=== PATIENT | female | born 1955 | race Caucasian/White ===

== ENCOUNTER 2016-11-23 05:43 | Day surgery (SDC) | payer BC ==
[~2016-11-23] VITALS: Ht 154.9 cm; Wt 55.0 kg
[2016-11-23 06:45] VITALS: Ht 154.9 cm; Wt 55.0 kg
[2016-11-23] MEDS ORDERED: omeprazole PO (06:54)
[2016-11-23] MEDS ORDERED: symbicort INH (06:54)
[2016-11-23] MEDS ORDERED: zantac PO (06:54)
[2016-11-23] MEDS ORDERED: lorazepam PO (06:54)
[2016-11-23 07:00] VITALS: BP 112/71; PULSE 90; RESP 24
[2016-11-23] MEDS ORDERED: FENTAnyl 50 MCG/ML VIAL ONE (07:50)
[2016-11-23] MEDS ORDERED: MIDAZOLAM 1 MG/ML 2 ML INJ ONE (07:50)
[2016-11-23 08:05] VITALS: BP 110/70; PULSE 82; RESP 24
--- NOTE | 2016-11-23 16:40 | GILP ---
DATE OF PROCEDURE: NAME OF PROCEDURE: Esophagogastroduodenoscopy and biopsy. SURGEON: Poly Cheema MD PREOPERATIVE DIAGNOSES: 1. Abdominal pain. 2. Chronic heartburn. POSTOPERATIVE DIAGNOSES: 1. Hiatal hernia. 2. Gastroesophageal reflux disease. 3. Gastritis. 4. Gastric mucosal biopsies were taken for Helicobacter pylori test. INDICATION FOR THE PROCEDURE: Ms. Brisa Bravo is a 61-year-old female patient who had upper abdo ron pain and chronic heartburn not responding to therapy. The patient was scheduled for endoscopi c examination for further evaluation. The procedure and possible complications are well explained to the patient. The patient understood and consented to the procedure. DESCRIPTION OF PROCEDURE: Under the influence of fentanyl and Versed, the gastroscope was carefully introduced into the esophagus, and under direct vision, it was advanced to the stomach and through the pylorus to the duodenal bulb and descending duodenum. FINDINGS: ESOPHAGUS: The patient had hiatal hernia and gastroesophageal reflux disease. STOMACH: She had gastritis with erosions. Gastric mucosal biopsies were taken for H pylori test. DUODENUM: Normal. The patient tolerated the procedure very well. There was no complication from the procedure. At th e end of the procedure, she was awake with stable vital signs, and she was discharged home to care o f her family. IMPRESSION: 1. Hiatal hernia. 2. Gastroesophageal reflux disease. 3. Gastritis. 4. Gastric mucosal biopsies were taken for Helicobacter pylori test. PLAN: 1. Omeprazole 40 mg p.o. b.i.d. 2. Await H pylori test report. Dictated By: POLY TONG/DAVID Conf#: [id number] DID#: [id number]
== END 2016-11-23 09:38 | disposition home or self-care (01) ==
LOC: GIL 05:43
PROVIDERS: ATTEND Internal Medicine Gastroenterology
DX: K44.9 Diaphragmatic hernia without obstruction or gangrene (principal); K21.9 Gastro-esophageal reflux disease without esophagitis; K29.70 Gastritis, unspecified, without bleeding
CPT/HCPCS: 43239; J2250; J3010; 87081

== ENCOUNTER 2017-09-27 11:30 | Day surgery (SDC) | payer BC ==
[2017-09-27] VITALS (19 sets, daily range): BP systolic 83–112; BP diastolic 46–60; PULSE 80–90; RESP 13–26; Ht 157.5 cm; Wt 55.2 kg
[~2017-09-27] VITALS: Ht 157.5 cm; Wt 55.2 kg
--- NOTE | 2017-09-27 07:54 | HPN ---
Date/Time of Note Date/Time of Note DATE: 09/27/17 TIME: 07:54 Interval H&P Admission Note Pt. seen H&P reviewed: No system changes ELIO FENG MD Sep 27, 2017 07:54
[~2017-09-27 11:30] MED LIST: lorazepam PO; omeprazole PO; symbicort INH; zantac PO
[2017-09-27] MEDS ORDERED: ADV25050 INHALATION (13:49)
[2017-09-27] MEDS ORDERED: DULO30CA47 PO (13:49)
[2017-09-27] MEDS ORDERED: FENTAnyl 50 MCG/ML VIAL ONE (13:51)
[2017-09-27] MEDS ORDERED: METOCLOPRAMIDE 10 MG INJ ONE (13:51)
[2017-09-27] MEDS ORDERED: ROPIVACAINE 0.2% 20 ML VIAL ONE (13:51)
[2017-09-27] MEDS ORDERED: MIDAZOLAM 1 MG/ML 2 ML INJ ONE (13:51)
[2017-09-27] MEDS ORDERED: POLYMYXIN/BACITRACIN 1L IRRIG ONE (15:55)
--- NOTE | 2017-09-27 15:56 | HPN ---
Date/Time of Note Date/Time of Note DATE: 09/27/17 TIME: 15:54 Interval H&P Admission Note the correct operative side is left side. Left shoulder scope, rotator cuff repair, biceps tenodesis, subacromial decompression ELIO FENG MD Sep 27, 2017 15:56
[2017-09-27] MEDS ORDERED: ROCURONIUM 50 MG INJ ONE (16:05)
[2017-09-27] MEDS ORDERED: DEXAMETHASONE 4 MG/ML 1 ML INJ ONE (16:05)
[2017-09-27] MEDS ORDERED: PROPOFOL 20 ML ONE (16:05)
[2017-09-27] MEDS ORDERED: CEFAZOLIN 1 GM INJ ONE (16:08)
[2017-09-27] MEDS ORDERED: PHENYLephrine (100 MCG/ML) 5ML SYG ONE (16:25)
[2017-09-27] MEDS ORDERED: EPHEDrine SULFATE 50 MG/5 ML SYG ONE (16:47)
[2017-09-27] MEDS ORDERED: EPINEPHrine 100 MCG/10 ML SYG IV ONE (16:53)
[2017-09-27] MEDS ORDERED: EPINEPHrine 1 MG INJ ONE ×2 (16:55→17:53)
[2017-09-27] MEDS ORDERED: EPHEDrine SULFATE 50 MG/5 ML SYG IV PRN ×2 (17:30→20:00)
[2017-09-27] MEDS ORDERED: ALBUTEROL 0.083% (NEB) 2.5 MG/3 ML AMP HHN PRN (17:30)
[2017-09-27] MEDS ORDERED: HYDROmorphONE (0.2 MG/ML) 10ML SYG IV PRN ×3 (17:30)
[2017-09-27] MEDS ORDERED: METOCLOPRAMIDE 10 MG INJ IV PRN (17:30)
[2017-09-27] MEDS ORDERED: DIPHENHYDRAMINE 50 MG INJ IV PRN (17:30)
[2017-09-27] MEDS ORDERED: ONDANSETRON 4 MG INJ IV PRN ×2 (17:30→19:30)
[2017-09-27] MEDS ORDERED: MEPERIDINE 25 MG INJ IV PRN (17:30)
[2017-09-27] MEDS ORDERED: KETOROLAC 30 MG INJ ONE (18:49)
--- NOTE | 2017-09-27 19:08 | OPR ---
Date/Time of Note Date/Time of Note DATE: 09/27/17 TIME: 18:59 Operative Report Preoperative Diagnosis 1. Left shoulder rotator cuff tear 2. Impingement syndrome 3. High-grade SLAP tear Postoperative Diagnosis Same Operation/Procedure Performed 1 left shoulder arthroscopy rotator cuff repair 2. Arthroscopic biceps tenodesis 3. 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 She has failed nonoperative treatment now presents for the above listed procedure. Risks and benefits were discussed with the patient risks including but not limited to infection, bleeding, shoulder stiffness, hardware failure with loosening of the anchors, re-tear of the tendon and other risks and potential complications were discussed informed consent was obtained Procedure Description Patient's correct shoulder was identified in the preoperative area she is brought back to the operating room. She had an interscalene block then she had general endotracheal anesthesia. She was then positioned on the shoulder table all bony prominences were adequately padded left shoulder and upper extremity were prepped and draped in the central manner. A timeout was performed. The standard posterior portal incision was made. Arthroscope was introduced in the glenohumeral joint. Articular surfaces were intact. There is a full-thickness tear of the supraspinatus extending in the infraspinatus. This is significant superior labral tear. The biceps tendon was intact. Subscap tendon was intact. At this point I established anterolateral cannula through a portal incision. I then tenodesed the biceps tendon into the bicipital groove using a 4.75 swivel lock anchor. At this point I turned my attention to the footprint I thoroughly debrided the footprint using a shaver cleaning up loose tissue. I then used Arthrex anchors and decided to use the speed bridge technique. This point one anchor was placed anteriorly. Another one was was placed posteriorly along the footprint and the articular margin. At this point I went in subacromial space. I did a thorough bursectomy found a moderate spur which was removed with a lateral incision using an oblong starr. At this point I looked at my cuff from the lateral portal and crosses and then used a scorpion device to penetrate the cuff anterior anchor was utilized and sutures were penetrated anteriorly the posterior anchor sutures were penetrated posteriorly I then crisscrossed the sutures abducting the arm but the double row 4.75 swivel lock bone laterally was very soft and I did not get good purchase on the anchor especially the posterior anchor. I pulled on the stitch which was attached to the eyelid at the tip of the anchor with the anchors were well seated and did not pull back when tension was applied on the sutures. Upon examination of the sutures, the suture were found to be compressing the cuff. I also went on the articular side and the footprint was fully covered and the cuff moved as a whole so I did leave the anchors as they were. At this point took out all instruments. Portal sites were closed with 3-0 nylon. Dry sterile dressings were applied patient was placed in a sling. She was extubated and transported to the recovery room in stable condition. The hand was warm and well perfused at the end of the case. ELIO FENG MD Sep 27, 2017 19:08
[2017-09-27] MEDS ORDERED: HYDROCODONE/APAP (5/325) TAB PO PRN ×2 (19:30)
[2017-09-27] MEDS ORDERED: morphine 2 MG INJ IV PRN (19:30)
== END 2017-09-27 20:39 | disposition home or self-care (01) ==
LOC: SDS 11:30
PROVIDERS: ATTEND Specialist
DX: S46.012A Strain of muscle(s) and tendon(s) of the rotator cuff of left shoulder, initial encounter (principal); M75.42 Impingement syndrome of left shoulder; S43.432A Superior glenoid labrum lesion of left shoulder, initial encounter; J45.909 Unspecified asthma, uncomplicated; K21.9 Gastro-esophageal reflux disease without esophagitis; X58.XXXA Exposure to other specified factors, initial encounter; Y93.89 Activity, other specified; Y92.89 Other specified places as the place of occurrence of the external cause; Y99.8 Other external cause status
CPT/HCPCS: 29826; 29827; 29828; C1713; J0171; J0690; J1100; J1885; J2250; J2370; J2765; J2795; J3010